=== PATIENT | male | born 1995 | race Hispanic/Latino ===

== ENCOUNTER 2023-07-07 13:57 | Emergency (ER) | payer SELFPAY ==
[2023-07-07] VITALS (14 sets, daily range): BP systolic 105–123; BP diastolic 56–83; PULSE 46–59; RESP 14–22; TEMP 36.7; O2SAT 99–100
--- NOTE | ~2023-07-07 | XR_ITS ---
EXAMINATION: XR chest 1V portable Exam Date/Time: 07/07/2023 14:40 CDT HISTORY: chest pain, pleuritic Comparison: None. RESULT: Lines, tubes, and devices: None. Lungs and pleura: Clear. Granulomatous calcifications. Cardiomediastinal silhouette: Stable. Other: No acute osseous or upper abdominal finding. IMPRESSION: No acute cardiopulmonary process. Reviewed, dictated and finalized at location [facility].
--- NOTE | 2023-07-07 14:04 | ED.ABDPAIN ---
HPI - Abdominal Pain General Chief Complaint: Abdominal Pain Stated Complaint: right flank pain Time Seen by Provider: 07/07/23 14:04 Source: patient Mode of arrival: ambulatory Limitations: no limitations History of Present Illness HPI narrative: This is a 28-year-old male who presents to the ED with chief complaint of right-sided chest pain for the past couple of days. Patient is English-speaking and has his girlfriend who is translating. Reports several weeks of left-sided chest/rib pain but since has transition to the right side. It is specifically worse with breathing and seems to be pleuritic in nature. Patient reports taking Tylenol with minimal relief. Reports pain 8/10. Denies nausea, vomiting or difficulties with urination. Denies any specific injury or trauma. Denies shortness of breath, cough, fevers, chills or recent illness. Denies leg swelling or history of blood clot. Denies recent immobilization or hospitalization. Related Data Allergies Allergy/AdvReac Type Severity Reaction Status Date / Time No Known Allergies Allergy Verified 07/07/23 14:15 Review of Systems Review of Systems: All systems as dictated in HPI Exam Narrative: GENERAL: Well-appearing, well-nourished, and in no acute distress. HEAD: Normocephalic, atraumatic. EYES: PERRLA and EOMI. ENT: Nares clear, no rhinorrhea or epistaxis. Mucous membranes moist. Oropharynx without tonsillar hypertrophy exudate or other lesions. NECK: Supple. No adenopathy or masses. CHEST: No respiratory distress. Clear to auscultation. No wheezes rales or rhonchi. Mild tenderness to the right inferior ribs. HEART: Regular rate and rhythm. No murmur heard. Normal peripheral pulses. ABDOMEN: Soft, nontender, nondistended, normal active bowel sounds. No CVA tenderness bilaterally MSK: Normal range of motion. No edema. SKIN: Warm, dry, no rash. NEURO: Alert and oriented x3. No focal deficits. PSYCH: Normal mood and affect. Course Reevaluation(s) Reevaluation #1: Patient is feeling improved after Toradol. Ready to go home Date: 07/07/23 Time: 15:37 Vital Signs Vital signs: Vital Signs Temperature 98.1 F 07/07/23 13:59 Pulse Rate 57 L 07/07/23 13:59 Respiratory Rate 18 07/07/23 13:59 Blood Pressure 121/83 07/07/23 13:59 Pulse Oximetry 99 07/07/23 13:59 Oxygen Delivery Room Air 07/07/23 13:59 Temperature 98.1 F 07/07/23 13:59 Pulse Rate 47 L 07/07/23 15:31 Respiratory Rate 18 07/07/23 15:31 Blood Pressure 117/68 07/07/23 15:31 Pulse Oximetry 100 07/07/23 15:31 Oxygen Delivery Room Air 07/07/23 14:14 MDM - Abdominal Pain MDM Narrative Medical decision making narrative: This is a 28-year-old male who presents to the ED for chief complaint of several weeks of chest wall pain. Vitals are normal. EKG shows sinus rhythm. Exam remarkable for right-sided chest wall tenderness. Lab work grossly unremarkable. Troponin is normal. Heart score 0. D-dimer is negative as well. Very low risk for VTE. Symptoms more consistent with chest wall pain, likely pleurisy. He was given a dose of Toradol here. Pt will be discharged in stable condition. Rx for naproxen bid, Return precautions given and supportive measures discussed. Pt is understanding and agreeable with plan for discharge and follow-up with PCP. Lab Data 07/07/23 14:16 07/07/23 14:16 Labs: Lab Results 07/07/23 07/07/23 Range/Units 14:16 14:16 WBC 6.3 (4.5-10.0) K/mm3 RBC 4.42 L (4.6-6.20) M/mm3 Hgb 14.1 (14.0-18.0) g/dL Hct 41.0 L (42.0-52.0) % MCV 92.8 (80-100) fl MCH 31.9 (26-34) pg MCHC 34.4 (32-36) g/dl RDW 13.1 (11.5-14.5) % Plt Count 239 (150-375) k/mm3 MPV 10.5 H (7.4-10.4) fl Immature Gran % (Auto) 0.0 (0-0.5) % Neut % (Auto) 60.7 (45.5-73.1) % Lymph % (Auto) 31.5 (18.3-44.2) % [place] % (Auto) 4.9 (2.6-8.5) % Eos % (Auto) 1.9 (0-4.4) % Bas
--- NOTE | 2023-07-07 14:11 | ECG_ITS ---
SEE SCANNED COPY FOR CONFIRMED REPORT MTDD
[2023-07-07 14:23] LABS: Basophils Absolute Auto 0.1 K/mm3 (0.0-0.1); Eosinophils Absolute Auto 0.1 K/mm3 (0-0.3); Eosinophils Percent Auto 1.9 % (0-4.4); Hemoglobin 14.1 g/dL (14.0-18.0); Lymphocytes Absolute Auto 1.98 K/mm3 (0.9-3.2); Lymphocytes Percent Auto 31.5 % (18.3-44.2); Mean Corpuscular HGB Conc 34.4 g/dl (32-36); Mean Corpuscular Hemoglobin 31.9 pg (26-34); Mean Corpuscular Volume 92.8 fl (80-100); Mean Platelet Volume 10.5 fl (7.4-10.4); Monocytes Absolute Auto 0.3 K/mm3 (0.1-0.6); Monocytes Percent Auto 4.9 % (2.6-8.5); Neutrophils Absolute Auto 3.8 K/mm3 (1.3-6.7); Neutrophils Percent Auto 60.7 % (45.5-73.1); Platelet Count Result 239 k/mm3 (150-375); Red Blood Count 4.42 M/mm3 (4.6-6.20); Red Cell Distribution Width 13.1 % (11.5-14.5); White Blood Count 6.3 K/mm3 (4.5-10.0)
[2023-07-07 14:34] LABS: Alanine Aminotransferase 37 U/L (6-50); Albumin Level 4.3 g/dL (3.5-5.1); Alkaline Phosphatase 93 U/L (38-126); Anion Gap 6 mmol/L (4-12); Aspartate Amino Transferase 47 U/L (17-59); Bilirubin,Total 0.6 mg/dL (0.2-1.3); Blood Urea Nitrogen 18 mg/dL (9-20); Calcium 9.7 mg/dL (8.4-10.2); Carbon Dioxide 23 mmol/L (22-30); Chloride 109 mmol/L (98-107); Estimated CRCL calculation 63 ml/min; Estimated Glomerular Filt Rate > 60; Glucose 79 mg/dL (65-110); INR 1.1; Lipase 64 U/L (23-300); Potassium 3.8 mmol/L (3.4-5.0); Prothrombin Time 14.1 Seconds (11.1-14.7); Sodium 138 mmol/L (137-145)
[2023-07-07 14:44] LABS: NT Pro B Type Natriuretic Pept 22 pg/mL (19.9-100); Troponin I < 0.012 ng/mL (0.000-0.034)
[2023-07-07 14:45] LABS: Troponin I < 0.012 ng/mL (0.000-0.034)
[2023-07-07] MEDS: KETOROLAC 15 MG/ML VIAL (*BKC) IV PUSH (15:03)
[2023-07-07 15:08] LABS: D Dimer 0.37 ug/mL (<0.48)
== END 2023-07-07 15:49 | disposition home or self-care (01) ==
PROVIDERS: Emergency Provider Physician Assistant
DX: R09.1 Pleurisy (principal)
CPT/HCPCS: 36415; 71045; 80053; 83690; 83880; 84484; 85025; 85380; 85610; 85730; 93005; 96374; 99284; J1885